=== PATIENT | female | born 1990 | race Caucasian/White ===

== ENCOUNTER 2024-04-30 15:22 | Outpatient (RCR) | payer BC, SELFPAY ==
--- NOTE | 2024-04-30 16:25 | OPREHPOC ---
Outpatient Therapy Plan of Care This is a Multidisciplinary Plan of Care that may contain components documented by all disciplines (PT, OT, and ST.) PT Problem 1 PT Problem #1 Knowledge Deficit PT Goal 1 Goal / Goal Update *indep with HEP Target Visit 6 PT Problem 2 PT Problem #2 Impaired Vestibular System PT Goal 1 Goal / Goal Update pt perform without any vestibular symptoms: 1* good convergence of eyes 2* gaze stabilization with head motion R/L x 20 reps 3* gaze stabilization with head motion up/down x 20 reps 4* walking 50' with head motions R/L 5* walking 50' with head motions up/down Target Visit 6
--- NOTE | 2024-04-30 16:26 | PTOPEVAL1 ---
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 Her symptoms increase with quick head motions and ease in few seconds. Dizziness Handicap Index rating of 18% limitation in activity level. 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 She also reports neck and R shoulder pain, with tension always in her neck and shoulders. And is going to a chiropractor for treatment. With the evaluation: BPPV testing was negative; slight symptoms with gaze stabilization and convergence testing. Education: issued handouts and education to pt on: basics of vestibular system, BPPV, causes of dizziness; HEP for occulomotor improvement; posture at work station and sitting, neck stretching. Skilled PT is indicated for vestibular rehab and progression of treatment as her symptoms improve. Education to pt for HEP and education about vestibular system. Plan of Care Interventions Neuro Re-education,Patient/Caregiver Education, Therapeutic Activities,Therapeutic Exercise PT Services Indicated Yes Treatment Frequency and 1-2 x/wk for 6 visits Duration These treatments will address the objective and functional deficits as defined above. The patient will be advanced safely and appropriately in order for the patient to progress towards his/her prior level of function. Additional exercises will be introduced and as well as a comprehensive home exercise program upon discharge, if needed, ?to ensure carryover of functional gains achieved in the clinic. This treatment plan has been reviewed and agreement upon by the patient.
--- NOTE | 2024-06-14 12:43 | PTOPDC ---
Assessment and note entered by Isaura Hassan, PT Assessment Status Discharge - Pt Not Present ICD-10 Condition Codes (PT) BPPV H81.12 Onset Nov 2023 Subjective Information pt was not seen this date. Assessment PT Clinical Summary Sienna had the PT evaluation on 04-30-24 for vertigo and has not called and returned for any further treatment. Discharge PT. The goals were not addressed. Plan of Care PT Services Indicated No
== END 2024-06-14 14:33 | disposition home or self-care (01) ==
LOC: ANHPT 15:22
PROVIDERS: PCP Internal Medicine; Visit Provider Internal Medicine
DX: H81.10 Benign paroxysmal vertigo, unspecified ear (principal)
CPT/HCPCS: 97110; 97161; 97530

== ENCOUNTER 2024-11-06 02:11 | Day surgery (SDC) | payer BC, SELFPAY ==
--- NOTE | 2024-10-29 15:58 | PC.NURSE ---
Report to the Outpatient Waiting Room, entrance under the green pavilion located off [facility], at time _0600_ on date _[id number]_. Planned Procedure Time: _0730_.? Time changes happen often and if your time is changed the preop area will call you the afternoon before. - You and your visitor will be asked to self-screen and do not enter if you have any COVID symptoms. Please call surgeon if you need to reschedule. - A mask is optional within the hospital at this time. Patients may have clear liquids (water, carbonated beverages, clear teas, apple juice) until 3 hours prior to surgery with a maximum of 20 ounces. - No food from midnight until time of surgery and no smoking, or chewing tobacco (or any form of nicotine). No chewing gum, candy or mints. Take only the following medications with a SIP of water on the morning of surgery: ____None___ DO NOT STOP ANY OF YOUR OTHER PRESCRIPTION MEDICATIONS PRIOR TO SURGERY EXCEPT THE FOLLOWING Hold all vitamins and supplements for 3 days per anesthesiologist. Medications to discontinue per physician Date to take last kvkd___[phone]___ Please no make-up, nail kazakh, hairspray, perfume, deodorant, or body powder the day of surgery.? No jewelry (including any body piercings) or valuables the day of surgery, leave them at home.? Please take a shower or bath the night before, or the morning of, surgery with an antibacterial soap.? Wear comfortable, loose fitting clothing.? - Jewelry must be removed prior to entering the operating room.? Rings and piercings that are not removed may be cut off. - The hospital will not accept responsibility for valuables.? - Please leave all valuables, including medications, at home the day of surgery. If you are going home after surgery, a licensed train driver must drive you home.? - NO public transportation without another adult if you receive anesthesia. - We recommend that an adult stay with you for 24 hours following discharge. - We also recommend that you do not drive, make important decision, drink alcoholic beverages, or take any drugs that were not prescribed by your health care provider for at least 24 hours after your discharge time. Follow any additional instructions given to you from your surgeon. Telephone instructions given to _Sienna___and asked if any additional questions and then verbalized understanding. Patient advised to call surgeon office or pre surgery nurse liaison [phone] if any additional questions.
[2024-11-06] VITALS (9 sets, daily range): BP systolic 91–139; BP diastolic 51–80; PULSE 66–97; RESP 12–16; TEMP 36.3–37.1; O2SAT 97–100
[2024-11-06] MEDS: ACETAMINOPHEN 500 MG TABLET 1000 MG PO (06:40)
[2024-11-06] MEDS: LACTATED RINGERS 1,000 ML 30 ML IV CONT ×2 (06:40→09:38)
[2024-11-06] MEDS: KETOROLAC 15 MG/ML VIAL (*BKC) IV PUSH (06:45)
--- NOTE | 2024-11-06 07:15 | WPDHPUPDATE1 ---
History and Physical Update Update Date/Time: 11/06/24 07:15 History and Physical has been reviewed, including an updated exam of the patient. There are NO changes in the patient's condition. Risks, benefits, and alternatives have been discussed and questions answered. Patient agrees to proceed with procedure.
--- NOTE | 2024-11-06 07:32 | WPDANESEPPF ---
Anes - Initial Pre Proc Eval Procedure: Operation Date: 11/06/24 07:30 Proposed Procedures p Bilateral Laparoscopic Salpingectomy - Anjum Aaron MD Date/Time: 11/06/24 07:32 Surgeon: Anjum Aaron MD Pre Op Diagnosis: desires sterilization Patient Data Age: 34 Gender: F Height: 1.63 m Weight: 79.9 kg Last Vital Signs Temp 37.1 C 11/06/24 06:22 Pulse 92 11/06/24 06:22 Resp 16 11/06/24 06:22 BP 139/75 11/06/24 06:22 Pulse Ox 100 11/06/24 06:22 O2 Del Method Room Air 11/06/24 06:22 Allergies Allergy/AdvReac Type Severity Reaction Status Date / Time No Known Allergies Allergy Verified 11/06/24 07:25 Home Medications ?Medication ?Instructions ?Recorded ?Confirmed ?Type multivitamin 1 tablet PO DAILY 02/24/21 11/06/24 History meclizine 25 mg tablet 25 mg PO BID PRN dizziness #30 tabs 02/02/24 10/29/24 Rx lysine 500 mg tablet 500 mg PO DAILY 10/30/24 11/06/24 History valacyclovir 1 gram tablet 2,000 mg PO Q12H PRN COLD SORE 11/06/24 11/06/24 History (Valtrex) BREAKOUT Patient hx anesthesia problems: none Family hx anesthesia problems: none Results Review: All pre-operative results and documents have been reviewed as part of the pre-operative evaluation. [facility] Past Medical History Medical History Basal cell carcinoma Asthma Anxiety Family History Family History Father Hypertension Mother Multiple sclerosis Brain aneurysm Cerebrovascular accident Sibling Skin cancer Social History Social History Smoking status: Former smoker Second hand tobacco smoke exposure: Yes Alcohol intake: current Substance use: never Substance use type: does not use Do You Feel Safe in your Home?: Yes Lack of Transportation: No Lack of Food: Never True Current Housing: I Have Housing Concerned About Future Housing: No Difficulty Paying Gas/Electric Bills: No Difficulty Paying for Meds: No Currently Unemployed: No Education: Bachelor's Degree Difficulty w/ Childcare or Family Care: No Living arrangements: with family Occupation/Education: occupation 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 Informed Consent: The patient's anesthetic plan and its attendant risks and benefits were discussed with the patient/family/POA. Questions were solicited and answers provided to the satisfaction of the patient/family/POA.
[2024-11-06] MEDS: SCOPOLAMINE 1 MG PATCH 1 PATCH TRANSDERM (07:35)
[2024-11-06 07:56] LABS: BEDSIDEPREGUCG Negative (Negative)
--- NOTE | 2024-11-06 08:17 | S_PTH ---
PATIENT: Pamella Rose LOC: [facility] U#:[id number] AGE/SX: 34/F ROOM: RE11/06/[address]: Anjum Aaron MD : 1990 BED: DIS: 11/06/2024 SPEC #: [id number] RECD: 11/06/24 10:32 STATUS: JESUS REQ #: [id number] HOWARD: 11/06/24 08:[address]: Anjum Aaron DEPT: [facility] Surgical RECD BY: Latoya Thomson ENTERED: 11/06/24 10:33 SP TYPE: Surgical OTHR DR: Warren Nguyen DO Tissues: A - Fallopian Tube Bilateral Procedures: Gross and Microscopic Level 2 Hematoxylin and Eosin Stain
[2024-11-06] MEDS: BUPivacaine HCL 0.5% 10 ML AMP INFILTRATE (08:23)
--- NOTE | 2024-11-06 08:40 | W.PM.PROC2 ---
Procedure Note - Detailed Date of Procedure 11/06/24 Pre-op Diagnosis desires sterilization Post-op Diagnosis Other (1. sterilization request 2. severe endometriosis 3. Pelvic adhesions) Procedure Performed Laparoscopic right salpingectomy and left partial salpingectomy lysis of adhesion Surgeon Anjum Aaron MD Anesthesia General Indications undesired fertility desires permanent sterilization Findings extensive endometriosis involving the bladder and adhesions of the ovaries to the posterior uterus and endometriosis implants on posterior uterus the left fallopian tube proximal segment was id he has to the round ligament and left pelvic sidewall with extensive endometriosis implants at the attachment. Right fallopian tube normal. Adhesion of the omental and kar intestinal fat to the lower abdomen which was lysed for visualization. Small adhesion on the left pelvic sidewall lysed for mobilization of the left fallopian tube. Several small paratubal cyst on the right fallopian tube removed with the fallopian tube. Description of Procedure After informed consent was obtained patient was taken to the operating room and general endotracheal anesthesia was administered. She was placed in low lithotomy need prep prepped sterile fashion. Attention was turned to the vagina speculum inserted single-tooth tenaculum placed on anterior lip of the cervix. [facility] uterine manipulator placed into the cervical canal. The speculum was removed. Attention was then turned to the abdomen. A horizontal incision was made at the umbilicus and a Veress needle was inserted into the abdomen confirmation into the abdomen obtained with free flow of fluid and normal peritoneal pressures. A pneumoperitoneum of 15 mm per mercury was obtained. 0.5% Marcaine injected at each incision site prior to incision. The 5 mm port was inserted under laparoscopic visualization. Patient was placed in Trendelenburg position. Attention was turned to the left side of the abdomen and a 5 mm port was inserted under laparoscopic visualization and a 5 mmport was inserted on the right side. The pelvic organs were visualized. Findings per above. The LigaSure was used to lyse the adhesions of the omental tissue at the lower mid abdomen to obtain adequate visualization of pelvis. Using the LigaSure the right fallopian tube was excised to near the entrance to the uterus. This was removed through the port. Small adhesions on the left pelvic sidewall were lysed for mobilization of the distal fallopian tube. The proximal left fallopian tube was densely adhesed to the left round ligament and pelvic sidewall to the midportion of the fallopian tube. The portion of the left fallopian tube that was free, which was half of the fallopian tube was ligated, to include the fimbria. Did not remove or cauterize endometriosis due to it being extensively adhesed to bladder and side wall. The fallopian tubes were removed through the 5 mm port. Hemostasis was noted at both sites. Patient was taken out of Trendelenburg position the pneumoperitoneum was released and the skin incisions were closed in a subcuticular fashion with 4 O Vicryl. Tenaculum and acorn removed. Hemostasis at tenaculum site obtained with pressure. Estimated Blood Loss 4 Drains No Packing No Pathology Yes (right fallopian tube, distal half of fallopian tube excises) Complications No immediate complications Condition Stable Disposition Same day [facility] Billing Surgery - Charge Forward: Surgery Billing
[2024-11-06] MEDS: ONDANSETRON INJ 4 MG/2 ML VIAL IV PUSH (09:36)
== END 2024-11-06 11:15 | disposition home or self-care (01) ==
PROVIDERS: PCP Internal Medicine; Visit Provider Obstetrics & Gynecology
PROC: (CPT 49320; principal; 2024-11-06 07:30)
DX: Z30.2 Encounter for sterilization (principal); N83.8 Other noninflammatory disorders of ovary, fallopian tube and broad ligament; N80.A0 Endometriosis of bladder, unspecified depth; N73.6 Female pelvic peritoneal adhesions (postinfective); G89.18 Other acute postprocedural pain; J45.909 Unspecified asthma, uncomplicated; F41.9 Anxiety disorder, unspecified; Z87.891 Personal history of nicotine dependence; Z85.828 Personal history of other malignant neoplasm of skin; Z84.0 Family history of diseases of the skin and subcutaneous tissue
CPT/HCPCS: 58661; 88302; A9270; J1100; J1200; J1885; J2250; J2270; J2405; J2704; J7030; J7120